=== PATIENT | male | born 1985 | race American Indian/Alaskan Native ===

== ENCOUNTER 2018-07-26 02:26 | Emergency (ER) | payer SELFPAY ==
[2018-07-26 02:31] VITALS: BP 135/85
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
[2018-07-26] MEDS ORDERED: IBUPROFEN PO ONE (04:24)
== END 2018-07-26 05:10 | disposition home or self-care (01) ==
LOC: MERGE 02:26 → ED 02:26
DX: S86.011A Strain of right Achilles tendon, initial encounter (principal); M25.512 Pain in left shoulder; W22.8XXA Striking against or struck by other objects, initial encounter; Y93.89 Activity, other specified; Y92.89 Other specified places as the place of occurrence of the external cause; Y99.8 Other external cause status
CPT/HCPCS: 99283

== ENCOUNTER 2018-08-23 06:53 | Emergency (ER) | payer SELFPAY ==
[2018-08-23 07:03] VITALS: BP 147/98
[2018-08-23] MEDS ORDERED: NACL 0.9% 1000 ML 1,000 ML IV ONE (07:03)
[2018-08-23 07:35] LABS: Basophils # (Auto) 0.1 K/mm3 (0.0-0.1); Basophils % (Auto) 0.5 % (0.0-1.8); Eosinophils # (Auto) 0.3 K/mm3 (0.0-0.4); Eosinophils % (Auto) 2.7 % (0.0-4.3); Hematocrit 46.9 % (35.5-45.6); Hemoglobin 15.5 gm/dl (11.8-15.2); Lymphocytes # (Auto) 2.1 K/mm3 (1.2-5.4); Lymphocytes % (Auto) 18.4 % (13.4-35.0); Mean Corpuscular HGB Conc 33 % (32-34); Mean Corpuscular Volume 85 fl (84-94); Monocytes # (Auto) 1.1 K/mm3 (0.0-0.8); Monocytes % (Auto) 9.5 % (0.0-7.3); Platelet Count 273 K/mm3 (140-440); Red Blood Count 5.51 M/mm3 (3.65-5.03); Red Cell Distribution Width 15.2 % (13.2-15.2)
--- NOTE | 2018-08-23 07:45 | Emergency Department Report ---
HPI - General Chief Complaint: Abdominal Pain Time Seen by Provider: 08/23/18 07:26 - HPI HPI: This is a 33-year-old male here report that he is having nausea and vomiting today with some red streaks disease coughing a lot. He is having abdominal pain and he thinks it is from coughing because he only has abdominal pain when he is coughing. He also says that because he is coughing so much she is having vomiting. Pain is located in the mid abdomen and feels throbbing and worse with cough. Pain is 7 out of 10. Worse with cough and vomiting and no alleviating factors. Denies any fever or chills. Denies any back pain or urinary burning frequency or urgency. Patient states that he thinks he had some French consistently started feeling sick. Denies any blood in his urine. He said he is feeling weak. He also said he had diarrhea twice this morning. No medication taken prior to coming to the emergency room. ED Past Medical Hx - Past Medical History Previous Medical History?: No - Surgical History Past Surgical History?: Yes Additional Surgical History: right arm. right leg - Family History Family history: hypertension - Social History Smoking Status: Current Every Day Smoker Substance Use Type: None - Medications Home Medications: Home Medications Medication Instructions Recorded Confirmed Last Taken Type Amoxicillin 500 mg PO TID #30 capsule 06/07/17 Unknown Rx Fluticasone [Flonase] 1 spray NS QDAY #1 bottle 06/07/17 Unknown Rx Ibuprofen 800 mg PO TID PRN #30 tablet 06/07/17 Unknown Rx Terbinafine HCl [Terbinafine] 30 gm TP BID #30 cream..g. 10/10/17 Unknown Rx Famotidine [Pepcid] 20 mg PO BID #60 tablet 07/11/18 Unknown Rx Naproxen 500 mg PO BID PRN #30 tablet 07/11/18 Unknown Rx Ibuprofen [Motrin 600 MG tab] 600 mg PO Q8H #15 tablet 07/26/18 Unknown Rx Cetirizine HCl [ZyrTEC] 10 mg PO QAM 14 Days #14 capsule 08/23/18 Unknown Rx Codeine Phosphate/Guaifenesin 10 ml PO Q12H PRN #100 liquid 08/23/18 Unknown Rx [Guaifen-Codeine 100-10 mg/5 ml] Dicyclomine [Bentyl] 40 mg PO QID 3 Days #12 tablet 08/23/18 Unknown Rx Fluticasone [Flonase] 1 spray NS QDAY 14 Days #1 bottle 08/23/18 Unknown Rx Promethazine [Phenergan TAB] 25 mg PO Q6HR PRN #12 tab 08/23/18 Unknown Rx Sulfamethoxazole/Trimethoprim 1 each PO BID 10 Days #20 tablet 08/23/18 Unknown Rx [Bactrim DS TAB] ED Review of Systems ROS: Stated complaint: VOMITTING BLOOD Other details as noted in HPI Constitutional: weakness. denies: chills, fever ENT: congestion. denies: ear pain, throat pain Respiratory: cough. denies: shortness of breath, SOB with exertion, SOB at rest, wheezing Cardiovascular: denies: chest pain, palpitations, edema, syncope Gastrointestinal: abdominal pain, nausea, vomiting, diarrhea, other (patient said when he coughs his throat irritates that he has some blood but no active bleeding.). denies: constipation, hematemesis, melena, hematochezia Genitourinary: denies: urgency, dysuria, frequency, hematuria, discharge, testicular pain, testicular mass Musculoskeletal: denies: back pain, joint swelling, arthralgia, myalgia Skin: denies: rash Neurological: denies: headache, numbness, paresthesias, confusion, abnormal gait, vertigo Physical Exam - Physical Exam Vital Signs: Vital Signs 08/23/18 06:57 Temperature 98.3 F Pulse Rate 112 H Respiratory 18 Rate Blood Pressure 147/98 O2 Sat by Pulse 100 Oximetry General: This is a 33-year-old male well-nourished well-developed in no acute distress. Physical Exam: Head: Normocephalic atraumatic. Scalp examination and normal. Nontender to palpate. No abrasion, contusion or hematoma noted. Ears: Bilateral TM congested without erythema. Bilateral EAC normal exam. No mastoid bone tenderness. Nose: Bilateral nasal mucosa congested with clear drainage and no erythema. Maxillary and frontal sinuses are nontender to palpate Mouth: Oral mucosa dry, tongue is normal, uvula is midline, no TUG CAPTAIN or drooling, oral airways patent and uvula is Lungs: Clear to auscultated bilaterally, no rhonchi wheezes or rales. Patient with dry cough. No use of accessory muscles. No chest wall tenderness CV: S1, S2. Tachycardic at 112, Regular rhythm negative murmur. Eyes: Bilateral pupils equal and reactive to light, conjunctival injection or icterus. Bilateral EOM intact and normal accommodation. No nystagmus. Lids a re normal. nontender to palpate. Skin: Clean dry and intact, no rash or lesions. Abdomen: Nontender to palpate in all quadrants. No guarding or rebound tenderness. No CVA tenderness. No hernia or mass felt. Extremity: No cce. + 2 pulses in all extremities, no neurovascular compromise. noted to extremities. Negative Homans Musculoskeletal: Range of motion in all extremities, no joint crepitus, erythema or effusion. Skin: Clean dry and intact, no rashes no lesions Mood: Normal mood and behavior ED Course Vital Signs 08/23/18 06:57 Temperature 98.3 F Pulse Rate 112 H Respiratory 18 Rate Blood Pressure 147/98 O2 Sat by Pulse 100 Oximetry - Reevaluation(s) Reevaluation #1: 08/23/18 09:54 Patient given Zofran 8 mg ODT sublingual which relieved his nausea. He was g iven apple juice and was able to tolerate. He is not having any abdominal pain at present. No shortness of breath. ED Medical Decision Making - Lab Data Result diagrams: 08/23/18 07:27 08/23/18 07:27 Lab Results 08/23/18 08/23/18 08/23/18 Range/Units 07:27 07:27 08:37 WBC 11.4 H (4.5-11.0) K/mm3 RBC 5.51 H (3.65-5.03) M/mm3 Hgb 15.5 H (11.8-15.2) gm/dl Hct 46.9 H (35.5-45.6) % MCV 85 (84-94) fl MCH 28 (28-32) pg MCHC 33 (32-34) % RDW 15.2 (13.2-15.2) % Plt Count 273 (140-440) K/mm3 Lymph % (Auto) 18.4 (13.4-35.0) % Gonzales % (Auto) 9.5 H (0.0-7.3) % Eos % (Auto) 2.7 (0.0-4.3) % Baso % (Auto) 0.5 (0.0-1.8) % Lymph # 2.1 (1.2-5.4) K/mm3 Gonzales # 1.1 H (0.0-0.8) K/mm3 Eos # 0.3 (0.0-0.4) K/mm3 Baso # 0.1 (0.0-0.1) K/mm3 Seg Neutrophils % 68.9 (40.0-70.0) % Seg Neutrophils # 7.8 H (1.8-7.7) K/mm3 Sodium 139 (137-145) mmol/L Potassium 3.7 (3.6-5.0) mmol/L Chloride 99.5 (98-107) mmol/L Carbon Dioxide 25 (22-30) mmol/L Anion Gap 18 mmol/L BUN 7 L (9-20) mg/dL Creatinine 0.7 L (0.8-1.5) mg/dL Estimated GFR > 60 ml/min BUN/Creatinine Ratio 10 % Glucose 102 H (75-100) mg/dL Calcium 9.5 (8.4-10.2) mg/dL Total Bilirubin 0.60 (0.1-1.2) mg/dL AST 21 (5-40) units/L ALT 29 (7-56) units/L Alkaline Phosphatase 81 (35-129) units/L Total Protein 7.4 (6.3-8.2) g/dL Albumin 4.3 (3.9-5) g/dL Albumin/Globulin Ratio 1.4 % Lipase 21 (13-60) units/L Urine Color Yellow (Yellow) Urine Turbidity Clear (Clear) Urine pH 6.0 (5.0-7.0) Ur Specific Pillager 1.009 (1.003-1.030) Urine Protein <15 mg/dl (Negative) mg/dL Urine Glucose (UA) Neg (Negative) mg/dL Urine Ketones 20 (Negative) mg/dL Urine Blood Neg (Negative) Urine Nitrite Neg (Negative) Urine Bilirubin Neg (Negative) Urine Urobilinogen 2.0 (<2.0) mg/dL Ur Leukocyte Esterase Mod (Negative) Urine WBC (Auto) 21.0 H (0.0-6.0) /HPF Urine RBC (Auto) 1.0 (0.0-6.0) /HPF Urine Mucus Few /HPF Urine culture sent - Radiology Data Radiology results: report reviewed Patient a 2 view x-ray of the dictated radiologist report reviewed. Please see details. Findings [facility] [address] [place] [address] XRay Report Signed Patient: CHOLO SHARP MR#: [id number] : 1985 Acct:[id number] Age/Sex: 33 / M ADM Date: 08/23/18 Loc: ED Attending Dr: Ordering Physician: VENESSA TAVARES Date of Service: 08/23/18 Procedure(s): XR chest routine 2V Accession Number(s): [id number] cc: VENESSA TAVARES Fluoro Time In Minutes: ROUTINE CHEST, TWO VIEWS: HISTORY: Cough and fever for one month. The trachea, heart, mediastinal contour, lung johnson and bony thorax are unremarkable. IMPRESSION: Unremarkable chest x-ray. Transcribed By: TTR Dictated By: MANN HARVEY JR, MD Electronically Authenticated By: MANN HARVEY JR, MD Signed Date/Time: 08/23/18806 DD/ 6 TD/TT: 08/23/18806 - Medical Decision Making This is a 33-year-old male here reports that he is having nausea vomiting and diarrhea after eating French's is also complaining of respiratory cough and cold symptoms. Please see examination notes for detail. X-ray: Patient had 2 view chest x-ray shows no acute abnormalities. Labs: CBC with mild elevation in white count, hemoconcentration suggesting some dehydration, CMP is stable, lipase stable urinalysis with positive white counts and moderate leukocyte Estrace. 20 ketones. Urine culture sent Assessment/plan Nausea vomiting and diarrhea-resolving. Patient was able to tolerate oral liquids in the emergency room and receive Zofran 8 mg ODT which helped his nausea. Suggested bland diet to include bananas, rice, applesauce and toast and to follow-up at his primary care in 2 days. Acute cystitis without hematuria-patient will be sent home on Bactrim DS Upper respiratory cough and congestion-patient will be sent home on, Zyrtec, Flonase and will fundus in with codeine to help with cough. Mild dehydration-orally hydrated without any problems I discussed the patient is diagnosis and treatment plan and told him that he will need to follow up with primary care physician in 2 days and if he does not have one to follow up at [facility]. I also instructed him on his x-ray and lab results. Patient voiced understanding and discharged home and told to keep hydrated with Gatorade and water. - Differential Diagnosis PNA, bronchitis, URI or cough congestion, viral syndrome Critical care attestation.: If time is entered above; I have spent that time in minutes in the direct care of this critically ill patient, excluding procedure time. ED Disposition Clinical Impression: Acute cystitis without hematuria, Nausea vomiting and diarrhea, Dehydration, mild, URI with cough and congestion Abdominal pain Qualifiers: Abdominal location: generalized Qualified Code(s): R10.84 - Generalized abdominal pain Disposition: - TO HOME OR SELFCARE Is pt being admited?: No Does the pt Need Aspirin: No Condition: Stable Instructions: Acute Nausea and Vomiting (ED), Abdominal Pain (ED), Nutrition Tips for Relief of Diarrhea (ED), Acute Diarrhea (ED), Gastroenteritis (ED), Urinary Tract Infection in Men (ED) Additional Instructions: Please follow up with the primary care in 2 days and if he do not have a primary care doctor follow-up at [facility] Please rest for the next 3 days and make sure he drank plenty of water to include Gatorade at least 2-3 L daily. 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
[2018-08-23] MEDS ORDERED: ZOFRAN ODT PO ONE (07:46)
[2018-08-23 07:59] LABS: Alanine Aminotransferase 29 units/L (7-56); Albumin 4.3 g/dL (3.9-5); BUN/Creatinine Ratio 10; Blood Urea Nitrogen 7 mg/dL (9-20); Calcium 9.5 mg/dL (8.4-10.2); Hemolysis Index 10
--- NOTE | 2018-08-23 08:10 | XRay Report ---
ROUTINE CHEST, TWO VIEWS: HISTORY: Cough and fever for one month. The trachea, heart, mediastinal contour, lung johnson and bony thorax are unremarkable. IMPRESSION: Unremarkable chest x-ray.
[2018-08-23 09:06] LABS: Bilirubin,Urine NEG (Negative); Blood,Urine NEG (Negative); Color,Urine Yellow (Yellow); Mucus,Urine FEW /HPF; Protein,Urine <15 mg/dL mg/dL (Negative)
== END 2018-08-23 10:14 | disposition home or self-care (01) ==
LOC: ED 06:53 → MERGE 06:53 → ED 10:14
DX: N30.00 Acute cystitis without hematuria (principal); E86.0 Dehydration; J06.9 Acute upper respiratory infection, unspecified; F17.200 Nicotine dependence, unspecified, uncomplicated; Z79.899 Other long term (current) drug therapy
CPT/HCPCS: 36415; 71046; 80053; 81001; 83690; 85025; 87086; Q0162

== ENCOUNTER 2018-08-30 02:31 | Emergency (ER) | payer SELFPAY ==
[2018-08-30 04:15] LABS: Hematocrit 44.9 % (35.5-45.6); Hemoglobin 15.1 gm/dl (11.8-15.2); Mean Corpuscular HGB Conc 34 % (32-34); Mean Corpuscular Volume 85 fl (84-94); Platelet Count 299 K/mm3 (140-440); Red Blood Count 5.31 M/mm3 (3.65-5.03); Red Cell Distribution Width 14.6 % (13.2-15.2)
[2018-08-30 04:19] LABS: Alanine Aminotransferase 32 units/L (7-56); Albumin 4.3 g/dL (3.9-5); BUN/Creatinine Ratio 9; Blood Urea Nitrogen 7 mg/dL (9-20); Calcium 9.3 mg/dL (8.4-10.2); Hemolysis Index 3
[2018-08-30 05:05] LABS: Bilirubin,Urine NEG (Negative); Blood,Urine NEG (Negative); Color,Urine Yellow (Yellow); Mucus,Urine FEW /HPF; Protein,Urine <15 mg/dL mg/dL (Negative)
[2018-08-30 05:59] VITALS: BP 118/74
[2018-08-30] MEDS ORDERED: IBUPROFEN PO ONE (08:13)
[2018-08-30] MEDS ORDERED: ZOFRAN ODT PO ONE (08:13)
[2018-08-30] MEDS ORDERED: ZOFRAN ONE (08:43)
[2018-08-30] MEDS ORDERED: NACL 0.9% 1000 ML 1,000 ML ONE (08:44)
[2018-08-30] MEDS ORDERED: NACL 0.9% 1000 ML IV ONE (08:47)
[2018-08-30] MEDS ORDERED: ZOFRAN IV ONE (08:49)
[2018-08-30] MEDS ORDERED: TORADOL IV ONE (08:53)
[2018-08-30] MEDS ORDERED: TORADOL ONE (08:56)
--- NOTE | 2018-08-30 09:03 | Emergency Department Report ---
ED Abdominal Pain HPI - General Chief Complaint: Abdominal Pain Stated Complaint: ABD PAIN/DIARREAH Time Seen by Provider: 08/30/18 07:12 Source: patient Mode of arrival: Ambulatory Limitations: No Limitations - History of Present Illness MD Complaint: abdominal pain -: Gradual Location: LUQ, epigastric Radiation: none Migration to: no migration Severity: moderate Severity scale (0 -10): 7 Quality: cramping, aching Consistency: intermittent Improves With: nothing Worsens With: eating, vomiting Context: foreign travel, possible food poisoning - Related Data Previous Rx's Medication Instructions Recorded Last Taken Type Dicyclomine [Bentyl] 20 mg PO QID #20 tablet 08/31/18 Unknown Rx Esomeprazole Magnesium [Nexium] 40 mg PO QDAY #30 capsule. 08/31/18 Unknown Rx Sucralfate [Carafate] 1 gm PO Q6HR #360 udc 08/31/18 Unknown Rx Allergies Allergy/AdvReac Type Severity Reaction Status Date / Time No Known Allergies Allergy Verified 09/13/18 08:59 ED Review of Systems ROS: Stated complaint: ABD PAIN/DIARREAH Other details as noted in HPI Comment: All other systems reviewed and negative ED Past Medical Hx - Past Medical History Previous Medical History?: No - Surgical History Past Surgical History?: Yes Additional Surgical History: right arm. right leg - Social History Smoking Status: Current Every Day Smoker Substance Use Type: None - Medications Home Medications: Home Medications Medication Instructions Recorded Confirmed Last Taken Type Dicyclomine [Bentyl] 20 mg PO QID #20 tablet 08/31/18 Unknown Rx Esomeprazole Magnesium [Nexium] 40 mg PO QDAY #30 capsule. 08/31/18 Unknown Rx Sucralfate [Carafate] 1 gm PO Q6HR #360 udc 08/31/18 Unknown Rx ED Physical Exam - General Limitations: No Limitations General appearance: alert, in no apparent distress - Head Head exam: Present: atraumatic, normocephalic - Eye Eye exam: Present: normal appearance - ENT ENT exam: Present: mucous membranes moist - Neck Neck exam: Present: normal inspection - Respiratory Respiratory exam: Present: normal lung sounds bilaterally. Absent: respiratory distress - Cardiovascular Cardiovascular Exam: Present: regular rate, normal rhythm. Absent: systolic murmur, diastolic murmur, rubs, gallop - GI/Abdominal GI/Abdominal exam: Present: soft, normal bowel sounds. Absent: distended, tenderness, guarding - Rectal Rectal exam: Present: deferred - Extremities Exam Extremities exam: Present: normal inspection - Back Exam Back exam: Present: normal inspection - Neurological Exam Neurological exam: Present: alert, oriented X3 - Psychiatric Psychiatric exam: Present: normal affect, normal mood - Skin Skin exam: Present: warm, dry, intact, normal color. Absent: rash ED Course Vital Signs 08/30/18 08/30/18 02:54 05:55 Temperature 99.4 F 98.8 F Pulse Rate 108 H 98 H Respiratory 18 16 Rate Blood Pressure 146/83 118/74 Blood Pressure 118/74 [Left] O2 Sat by Pulse 96 97 Oximetry ED Medical Decision Making - Lab Data Result diagrams: 08/30/18 03:38 08/30/18 03:38 - Medical Decision Making 33-year-old seen male presents with gastroenteritis. Discussed the patient to follow up with [facility] Vital signs are normal. All labs are within normal limits, CT scan is negative Discussed follow-up. Critical care attestation.: If time is entered above; I have spent that time in minutes in the direct care of this critically ill patient, excluding procedure time. ED Disposition Clinical Impression: Abdominal pain, Gastroenteritis Disposition: DC-01 TO HOME OR SELFCARE Is pt being admited?: No Does the pt Need Aspirin: No Condition: Stable Instructions: Chronic Pelvic Pain in Men (ED), Abdominal Pain (ED) Additional Instructions: Make sure to follow up with the primary care physician as discussed. Take all your medications as you've been prescribed. If you have any worsening symptoms or develop new symptoms please return to ED immediately. Referrals: RUDDY CASON MD [Primary Care Provider] - 3-5 Days [facility] [Provider Group] - 3-5 Days [facility] [Provider Group] - 3-5 Days Forms: Accompanied Note, Work/School Release Form(ED) Time of Disposition: 10:12
--- NOTE | 2018-08-30 09:09 | Cat Scan Report ---
CT ABDOMEN PELVIS WITHOUT CONTRAST: HISTORY: abdominal pain. COMPARISON: none. TECHNIQUE: Helical CT in 1.25mm intervals without IV contrast. Sagittal and coronal reconstructions. FINDINGS: Lung bases: Normal. Liver: Normal. Biliary system: Normal. Pancreas: Normal. Spleen: Normal. Kidneys/ureters/bladder: Normal. Adrenal glands: Normal. Aorta: Normal. Intestines: Normal. Appendix: Normal. Pelvic viscera: Normal. Ascites: None. Adenopathy: None. Musculoskeletal: Normal. IMPRESSION: Unremarkable CT scan of the abdomen and pelvis without contrast.
[2018-08-30] MEDS ORDERED: BENTYL IM ONE (09:54)
== END 2018-08-30 10:35 | disposition home or self-care (01) ==
LOC: MERGE 02:31 → ED 02:31
DX: K52.9 Noninfective gastroenteritis and colitis, unspecified (principal); F17.200 Nicotine dependence, unspecified, uncomplicated
CPT/HCPCS: 36415; 74176; 80053; 81001; 83690; 85027; 96361; 96372; 96374; 96375; 99284; J0500; J1885; J2405; J7030; Q0162

== ENCOUNTER 2018-08-31 04:51 | Emergency (ER) | payer SELFPAY ==
[2018-08-31] MEDS ORDERED: NACL 0.9% 1000 ML 1,000 ML IV ONE (05:41)
[2018-08-31] MEDS ORDERED: MORPHINE IV ONE ×2 (06:19→08:14)
[2018-08-31] MEDS ORDERED: ZOFRAN IV ONE ×2 (06:19→08:14)
[2018-08-31 06:20] LABS: Basophils % (Auto) 0.5 % (0.0-1.8); Eosinophils % (Auto) 0.8 % (0.0-4.3); Hemoglobin 14.3 gm/dl (11.8-15.2); Lymphocytes # (Auto) 1.6 K/mm3 (1.2-5.4); Lymphocytes % (Auto) 27.2 % (13.4-35.0); Mean Corpuscular HGB Conc 33 % (32-34); Mean Corpuscular Volume 85 fl (84-94); Monocytes # (Auto) 0.5 K/mm3 (0.0-0.8); Monocytes % (Auto) 7.5 % (0.0-7.3); Platelet Count 278 K/mm3 (140-440); Red Blood Count 5.08 M/mm3 (3.65-5.03); Red Cell Distribution Width 14.7 % (13.2-15.2)
--- NOTE | 2018-08-31 06:21 | Emergency Department Report ---
ED General Adult HPI - General Chief complaint: Abdominal Pain Stated complaint: ABD PAIN Time Seen by Provider: 08/31/18 06:06 Source: patient Mode of arrival: Ambulatory Limitations: No Limitations - History of Present Illness Initial comments: Patient presents to respond chief complaint of abdominal pain 2 weeks. Patient states the pain has become increasingly worse over that time and also complains of some nausea. Patient denies anything making it better or worse. Patient denies chest pain, shortness breath, or headache. -: Gradual Location: abdomen Severity scale (0 -10): 6 Quality: stabbing, aching Consistency: constant Improves with: none Worsens with: none Associated Symptoms: denies other symptoms Treatments Prior to Arrival: none - Related Data Previous Rx's Medication Instructions Recorded Last Taken Type Dicyclomine [Bentyl] 20 mg PO QID #20 tablet 08/31/18 Unknown Rx Esomeprazole Magnesium [Nexium] 40 mg PO QDAY #30 capsule. 08/31/18 Unknown Rx Sucralfate [Carafate] 1 gm PO Q6HR #360 udc 08/31/18 Unknown Rx Allergies Allergy/AdvReac Type Severity Reaction Status Date / Time No Known Allergies Allergy Verified 06/07/17 09:53 ED Review of Systems ROS: Stated complaint: ABD PAIN Other details as noted in HPI Comment: All other systems reviewed and negative Constitutional: denies: chills, fever Eyes: denies: eye pain, eye discharge, vision change ENT: denies: ear pain, throat pain Respiratory: denies: cough, shortness of breath, wheezing Cardiovascular: denies: chest pain, palpitations Endocrine: no symptoms reported Gastrointestinal: abdominal pain. denies: nausea, diarrhea Genitourinary: denies: urgency, dysuria Musculoskeletal: denies: back pain, joint swelling, arthralgia Skin: denies: rash, lesions Neurological: denies: headache, weakness, paresthesias Psychiatric: denies: anxiety, depression Hematological/Lymphatic: denies: easy bleeding, easy bruising ED Past Medical Hx - Past Medical History Previous Medical History?: No - Surgical History Past Surgical History?: Yes Additional Surgical History: right arm. right leg - Social History Smoking Status: Current Every Day Smoker Substance Use Type: None - Medications Home Medications: Home Medications Medication Instructions Recorded Confirmed Last Taken Type Dicyclomine [Bentyl] 20 mg PO QID #20 tablet 08/31/18 Unknown Rx Esomeprazole Magnesium [Nexium] 40 mg PO QDAY #30 capsule. 08/31/18 Unknown Rx Sucralfate [Carafate] 1 gm PO Q6HR #360 udc 08/31/18 Unknown Rx ED Physical Exam - General Limitations: No Limitations General appearance: alert, in no apparent distress - Head Head exam: Present: atraumatic, normocephalic - Eye Eye exam: Present: normal appearance, PERRL, EOMI - ENT ENT exam: Present: mucous membranes moist - Neck Neck exam: Present: normal inspection - Respiratory Respiratory exam: Present: normal lung sounds bilaterally. Absent: respiratory distress, wheezes, rales - Cardiovascular Cardiovascular Exam: Present: regular rate, normal rhythm. Absent: systolic murmur, diastolic murmur, rubs, gallop - GI/Abdominal GI/Abdominal exam: Present: soft, tenderness (diffusely tender to palpation), normal bowel sounds. Absent: distended - Rectal Rectal exam: Present: deferred - Extremities Exam Extremities exam: Present: normal inspection - Back Exam Back exam: Present: normal inspection - Neurological Exam Neurological exam: Present: alert, oriented X3, CN II-XII intact. Absent: motor sensory deficit - Psychiatric Psychiatric exam: Present: normal affect, normal mood - Skin Skin exam: Present: warm, dry, intact, normal color. Absent: rash ED Course Vital Signs 08/31/18 08/31/18 08/31/18 05:52 05:54 05:58 Pulse Rate 85 Respiratory 20 18 Rate Blood Pressure Blood Pressure 115/65 [Left] O2 Sat by Pulse 99 98 98 Oximetry 08/31/18 08/31/18 08/31/18 06:00 06:15 06:30 Pulse Rate Respiratory Rate Blood Pressure 115/69 119/76 119/76 Blood Pressure [Left] O2 Sat by Pulse 99 99 82 L Oximetry 08/31/18 07:37 Pulse Rate 86 Respiratory 16 Rate Blood Pressure 117/75 Blood Pressure [Left] O2 Sat by Pulse 99 Oximetry ED Medical Decision Making - Lab Data Result diagrams: 08/31/18 05:56 08/31/18 05:56 - Radiology Data Radiology results: report reviewed - Medical Decision Making Discussed CT findings with patient and the need to follow up with a strap machine operator automatic for further testing Critical care attestation.: If time is entered above; I have spent that time in minutes in the direct care of this critically ill patient, excluding procedure time. ED Disposition Clinical Impression: Abdominal pain, Gastritis Disposition: - TO HOME OR SELFCARE Is pt being admited?: No Does the pt Need Aspirin: No Condition: Stable Instructions: Acute Abdominal Pain (ED), Gastritis (ED) Additional Instructions: return if worse Prescriptions: Dicyclomine [Bentyl] 20 mg PO QID #20 tablet Esomeprazole Magnesium [Nexium] 40 mg PO QDAY #30 capsule. Sucralfate [Carafate] 1 gm PO Q6HR #360 [facility] [place] Referrals: RUDDY CASON MD [Primary Care Provider] - 3-5 Days [facility] [Provider Group] - 3-5 Days Time of Disposition: 08:23
[2018-08-31 06:40] LABS: Alanine Aminotransferase 30 units/L (7-56); Albumin 4.1 g/dL (3.9-5); BUN/Creatinine Ratio 15; Blood Urea Nitrogen 12 mg/dL (9-20); Calcium 8.9 mg/dL (8.4-10.2); Hemolysis Index 10
--- NOTE | 2018-08-31 08:05 | Cat Scan Report ---
CT ABDOMEN AND PELVIS WITH CONTRAST INDICATION: Abdominal pain. COMPARISON: Yesterday. FINDINGS: Abdomen and pelvis CT performed following intravenous administration of 100 cc of Omnipaque 300. LUNG BASES: Nonspecific distal esophageal wall prominence/thickening, not excluded for gastroesophageal reflux and/or hiatal hernia, amongst others. ABDOMEN: Left hepatic lobe tip again wraps around the spleen in the left upper quadrant. Otherwise unremarkable liver, gallbladder, pancreas, adrenals, aorta, IVC, and kidneys. Homogenous, though somewhat lobulated spleen anteriorly as on axial image 36, series 2, amongst others. No ascites or size significant adenopathy. Nonopacified GI tract evaluation limited, though grossly nonobstructive. Mid to distal gastric exaggerated wall thickness as on axial series 2, images 48-58 nonspecific for suboptimal distention versus pathologic. Normal appendix. Mild stool throughout colon. PELVIS: Urinary bladder, seminal vesicles, prostate and rectosigmoid appear within normal limits. No free fluid or significant adenopathy. Intact bones. CONCLUSION: Distal esophageal and mid to distal gastric exaggerated wall thickness may be correlated for clinically in light of provided history. No other acute significant CT abnormality with few incidental findings, as above. Thank you for the opportunity to participate in this patient's care.
[2018-08-31] MEDS ORDERED: NACL 0.9% 500 ML 500 ML IV ONE (08:14)
[2018-08-31] MEDS ORDERED: PROTONIX IV ONE (08:14)
[2018-08-31 09:57] VITALS: BP 106/63
== END 2018-08-31 10:45 | disposition home or self-care (01) ==
LOC: MERGE 04:51 → ED 04:51
DX: K29.70 Gastritis, unspecified, without bleeding (principal); F17.200 Nicotine dependence, unspecified, uncomplicated
CPT/HCPCS: 36415; 74177; 80053; 83690; 85025; 96361; 96374; 96375; 96376; 99284; C9113; J2270; J2405; J7030; J7040; Q9967

== ENCOUNTER 2018-09-10 06:38 | Emergency (ER) | payer OTHER ==
[2018-09-10] MEDS ORDERED: PERCOCET 5/325 PO ONE ×2 (09:26→13:43)
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
[2018-09-10 09:36] LABS: Hematocrit 44.3 % (35.5-45.6); Hemoglobin 15.3 gm/dl (11.8-15.2); Mean Corpuscular HGB Conc 35 % (32-34); Mean Corpuscular Volume 83 fl (84-94); Platelet Count 272 K/mm3 (140-440); Red Blood Count 5.35 M/mm3 (3.65-5.03); Red Cell Distribution Width 14.5 % (13.2-15.2)
[2018-09-10 10:22] LABS: Alanine Aminotransferase 36 units/L (7-56); Albumin 4.6 g/dL (3.9-5); BUN/Creatinine Ratio 14; Blood Urea Nitrogen 11 mg/dL (9-20); Calcium 9.4 mg/dL (8.4-10.2); Hemolysis Index 6
[2018-09-10] MEDS ORDERED: K-DUR PO ONE (10:25)
[2018-09-10 10:26] LABS: Bilirubin,Direct < 0.2 mg/dL (0-0.2)
[2018-09-10] MEDS ORDERED: NACL 0.9% 1000 ML 1,000 ML IV ONE (10:35)
[2018-09-10 11:04] LABS: Band Neutrophils # (Manual) 0.2 K/mm3; Basophils % (Manual) 0 % (0.0-1.8); Eosinophils % (Manual) 0 % (0.0-4.3); Total Cells Counted 100
[2018-09-10 11:05] LABS: RBC Morphology Normal
--- NOTE | 2018-09-10 14:30 | XRay Report ---
PROCEDURE: XR ABDOMEN 2V TECHNIQUE: Abdominal series, including supine and upright AP views. HISTORY: Abdominal Pain COMPARISONS: None . FINDINGS: Bowel gas pattern: Nonobstructive . Masses or calcifications: None . Bony structures: No significant abnormality . Pneumoperitoneum: None . Other: No significant findings . IMPRESSION: Nonobstructive bowel gas pattern. This document is electronically signed by Bhavna Luna MD., September 10 2018 11:41:46 AM ET
--- NOTE | 2018-09-10 14:31 | XRay Report ---
PROCEDURE: XR KNEE 3V RT TECHNIQUE: Right knee radiograph, 3 views HISTORY: right knee pain COMPARISONS: None . FINDINGS: There is an intramedullary paul with screws in the tibia. There is no acute hilar comp location. There is no acute bony fracture or dislocation. There is no joint effusion. Overlying soft tissues are int act. IMPRESSION: No acute bony abnormality of the right knee . This document is electronically signed by Bhavna Luna MD., September 10 2018 11:42:49 AM ET
[2018-09-10 14:48] VITALS: BP 118/73
--- NOTE | 2018-09-10 16:52 | Cat Scan Report ---
PROCEDURE: CT HEAD/BRAIN WO CON TECHNIQUE: Computerized tomography of the head was performed without contrast material. HISTORY: headache, trauma COMPARISONS: None . FINDINGS: No CT evidence of intracranial mass, hemorrhage, acute territorial infarction, or hydrocephalus. Intr acranial arteries are symmetric in density. Calvarium is intact. Visualized paranasal sinuses and mas toids are aerated. IMPRESSION: No CT evidence of acute abnormality This document is electronically signed by Luma Perry MD., September 10 2018 01:21:34 PM ET
--- NOTE | 2018-09-10 16:58 | Cat Scan Report ---
PROCEDURE: CT ABDOMEN PELVIS W CON TECHNIQUE: Computerized axial tomography of the abdomen and pelvis was performed after the IV inject ion of iodinated nonionic contrast. HISTORY: abd pain COMPARISONS: None . FINDINGS: Visualized lower thorax: No significant abnormality. Liver: Normal size and attenuation. Spleen: Normal size and attenuation. Gallbladder and biliary system: Normal. Pancreas: Normal. Adrenals: Normal. Kidneys: Normal. GI tract: The appendix is visualized and does not appear inflamed. No bowel obstruction or inflammat ion is seen . Lymph nodes and mesentery: Normal. Vasculature: Normal.. Bladder: Normal. Reproductive organs: Normal. Peritoneum: No free fluid. Musculoskeletal structures: No significant abnormality. Other: None . IMPRESSION: No acute abnormality is identified . This document is electronically signed by Luma Perry MD., September 10 2018 01:25:04 PM ET
== END 2018-09-10 14:47 | disposition home or self-care (01) ==
LOC: ED 06:38 → MERGE 06:38 → ED 14:47
DX: S09.90XA Unspecified injury of head, initial encounter (principal); M25.561 Pain in right knee; R10.30 Lower abdominal pain, unspecified; E87.6 Hypokalemia; F17.200 Nicotine dependence, unspecified, uncomplicated; Y08.89XA Assault by other specified means, initial encounter; Y93.89 Activity, other specified; Y92.89 Other specified places as the place of occurrence of the external cause; Y99.8 Other external cause status
CPT/HCPCS: 29505; 36415; 70450; 73562; 74019; 74177; 80048; 80076; 85007; 85025; 96360; 99284; J7030; Q9967

== ENCOUNTER 2018-09-11 04:30 | Emergency (ER) | payer OTHER ==
[2018-09-11 04:47] VITALS: BP 141/78
[2018-09-11 05:23] LABS: Basophils % (Auto) 0.7 % (0.0-1.8); Eosinophils % (Auto) 0.3 % (0.0-4.3); Hematocrit 42.6 % (35.5-45.6); Hemoglobin 14.6 gm/dl (11.8-15.2); Lymphocytes # (Auto) 1.3 K/mm3 (1.2-5.4); Lymphocytes % (Auto) 25.2 % (13.4-35.0); Mean Corpuscular HGB Conc 34 % (32-34); Mean Corpuscular Volume 84 fl (84-94); Monocytes # (Auto) 0.5 K/mm3 (0.0-0.8); Monocytes % (Auto) 8.9 % (0.0-7.3); Platelet Count 242 K/mm3 (140-440); Red Blood Count 5.05 M/mm3 (3.65-5.03); Red Cell Distribution Width 14.4 % (13.2-15.2)
[2018-09-11 05:43] LABS: Alanine Aminotransferase 31 units/L (7-56); Albumin 4.4 g/dL (3.9-5); BUN/Creatinine Ratio 16; Blood Urea Nitrogen 11 mg/dL (9-20); Calcium 9.2 mg/dL (8.4-10.2); Hemolysis Index 12
[2018-09-11 06:03] LABS: Bacteria,Urine 1+ /HPF (Negative); Bilirubin,Urine NEG (Negative); Blood,Urine NEG (Negative); Color,Urine Straw (Yellow); Protein,Urine <15 mg/dL mg/dL (Negative)
[2018-09-11 06:05] LABS: RBC,Urine < 1.0 /HPF (0.0-6.0)
[2018-09-11] MEDS ORDERED: BOOSTRIX IM ONE (08:18)
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
--- NOTE | 2018-09-11 09:10 | XRay Report ---
PROCEDURE: XR KNEE 3V RT TECHNIQUE: 3 views of the right knee. HISTORY: pain after falling COMPARISON: None FINDINGS: There is no acute fracture seen. There is no dislocation seen. There is no evidence for joint effusion. There is a tibial intramedullary paul present. IMPRESSION: There is no acute abnormality identified. This document is electronically signed by Sheridan Perry MD., September 11 2018 09:07:37 AM ET
== END 2018-09-11 09:46 | disposition home or self-care (01) ==
LOC: ED 04:30 → MERGE 04:30 → ED 09:46
DX: S80.211A Abrasion, right knee, initial encounter (principal); R10.9 Unspecified abdominal pain; F17.200 Nicotine dependence, unspecified, uncomplicated; X58.XXXA Exposure to other specified factors, initial encounter; Y93.89 Activity, other specified; Y92.89 Other specified places as the place of occurrence of the external cause; Y99.8 Other external cause status
CPT/HCPCS: 36415; 80053; 81001; 83690; 85025; 90471; 90715

== ENCOUNTER 2018-09-15 06:55 | Emergency (ER) | payer OTHER ==
[2018-09-15 07:22] VITALS: BP 135/73
[2018-09-15] MEDS ORDERED: IBUPROFEN PO ONE (08:25)
--- NOTE | 2018-09-15 08:30 | Emergency Department Report ---
ED Lower Extremity HPI - General Chief Complaint: Extremity Injury, Lower Stated Complaint: ABD PAIN KNEE INJURY Time Seen by Provider: 09/15/18 08:14 Source: patient Mode of arrival: Ambulatory Limitations: No Limitations - History of Present Illness Initial Comments: This is a 34-year-old -[place] male who presents with right knee pain for a injury 2 days ago. Patient states he was wrestling at home when he twisted his right knee. Patient states worse swelling but with the use of ice swelling improved. He also reports an abrasion to the lateral lower patella which has improved. Patient reports pain is worse with walking. He reports the pain is 10 on pain scale and achy sensation. He denies numbness or tingling, paresthesia, weakness, warmth, or erythema. MD Complaint: knee injury (right) Onset/Timin -: days(s) Injury: Knee: Right Type of Injury: unknown Place: home Severity: moderate Severity scale (0 -10): 8 Improves With: cold therapy Worsens With: weight bearing, movement Context: fall Associated Symptoms: swelling, able to partially bear weight. denies: snap/pop sensation, numbness, tingling, unable to bear weight, ambulatory Treatments Prior to Arrival: cold therapy - Related Data Previous Rx's Medication Instructions Recorded Last Taken Type Ibuprofen [Motrin 600 MG tab] 600 mg PO Q8H PRN #15 tablet 09/15/18 Unknown Rx Allergies Allergy/AdvReac Type Severity Reaction Status Date / Time No Known Allergies Allergy Unverified 09/15/18 07:13 ED Review of Systems ROS: Stated complaint: ABD PAIN KNEE INJURY Other details as noted in HPI Constitutional: denies: chills, fever Respiratory: denies: cough, shortness of breath, wheezing Cardiovascular: denies: chest pain, palpitations Gastrointestinal: denies: abdominal pain, nausea, diarrhea Musculoskeletal: joint swelling (right knee), arthralgia (right knee). denies: back pain Skin: other (operation to right knee). denies: rash, lesions Neurological: denies: headache, weakness, paresthesias Psychiatric: denies: anxiety, depression ED Past Medical Hx - Past Medical History Previous Medical History?: No - Surgical History Past Surgical History?: Yes Additional Surgical History: knee surg - Social History Smoking Status: Current Every Day Smoker Substance Use Type: None - Medications Home Medications: Home Medications Medication Instructions Recorded Confirmed Last Taken Type Ibuprofen [Motrin 600 MG tab] 600 mg PO Q8H PRN #15 tablet 09/15/18 Unknown Rx ED Physical Exam - General Limitations: No Limitations General appearance: alert, in no apparent distress - Respiratory Respiratory exam: Present: normal lung sounds bilaterally. Absent: respiratory distress - Cardiovascular Cardiovascular Exam: Present: regular rate, normal rhythm. Absent: systolic murmur, diastolic murmur, rubs, gallop - GI/Abdominal GI/Abdominal exam: Present: soft, normal bowel sounds - Expanded Lower Extremity Exam Right Hip exam: Present: normal inspection, full ROM Upper Leg exam: Present: normal inspection, full ROM Knee exam: Present: full ROM (painful range of motion), abrasion (healing 1 cm abrasion to lower lateral side, well approximated edges), full knee extension. Absent: laceration, ecchymosis, deformity, crepidus, dislocation, erythema, effusion, pain w/ pronation/supination, posterior draw sign, pain/laxity with valgus, pain/laxity with varus Lower Leg exam: Present: normal inspection, full ROM Ankle exam: Present: normal inspection, full ROM Foot/Toe exam: Present: normal inspection, full ROM Neuro vascular tendon exam: Present: no vascular compromise Gait: Positive: observed and normal - Neurological Exam Neurological exam: Present: alert, oriented X3, normal gait - Psychiatric Psychiatric exam: Present: normal affect, normal mood - Skin Skin exam: Present: warm, dry, intact, normal color. Absent: rash ED Course Vital Signs 09/15/18 07:20 Temperature 99.2 F Pulse Rate 92 H Respiratory 16 Rate Blood Pressure 135/73 Blood Pressure 135/73 [Left] O2 Sat by Pulse 98 Oximetry ED Lower Extremity MDM - Radiology Data Radiology results: report reviewed RIGHT KNEE, 3 views: History: Lateral knee pain. There is been previous placement of an intramedullary paul in the tibia which is partially imaged. Please correlate with history. The bony architecture is intact without evidence of fracture or dislocation. No significant soft tissue abnormality is seen. IMPRESSION: Surgical changes as described. Otherwise, unremarkable right knee films. - Medical Decision Making Patient was examined by me. Vitals are normal and patient is in no acute distress. Given Motrin 800 mg by mouth once many arm. Obtained a x-ray of right knee. X-rays dictated by radiologist for review by myself. Surgical changes as described. Otherwise, unremarkable right knee films. Patient informed of results. Start ibuprofen for pain. Increase activity as tolerated. Plan discussed with patient to discharge home and treat outpatient. He agrees with ER plan. Patient discharged home in stable condition. Follow up with PCP in 2-3 days. Critical care attestation.: If time is entered above; I have spent that time in minutes in the direct care of this critically ill patient, excluding procedure time. ED Disposition Clinical Impression: Pain in lateral portion of right knee Muscle strain of right knee Qualifiers: Encounter type: initial encounter Qualified Code(s): S86.911A - Strain of unspecified muscle(s) and tendon(s) at lower leg level, right leg, initial encounter Disposition: TO HOME OR SELFCARE Is pt being admited?: No Does the pt Need Aspirin: No Condition: Stable Instructions: Muscle Strain (ED), Arthralgia (ED), RICE Therapy (ED) Additional Instructions: Rest Use ice or heat on affected area for 20 minutes and off for 2 hours. Take pain medication as needed for pain. Follow up with Primary Care Provider in 2-3 days. Prescriptions: Ibuprofen [Motrin 600 MG tab] 600 mg PO Q8H PRN #15 tablet PRN Reason: Pain [facility] - 3-5 Days [facility] [Outside] - 3-5 Days [facility] [Outside] - 3-5 Days Forms: Work/School Release Form(ED) Time of Disposition: 09:53
--- NOTE | 2018-09-15 09:39 | XRay Report ---
RIGHT KNEE, 3 views: History: Lateral knee pain. There is been previous placement of an intramedullary paul in the tibia which is partially imaged. Please correlate with history. The bony architecture is intact without evidence of fracture or dislocation. No significant soft tissue abnormality is seen. IMPRESSION: Surgical changes as described. Otherwise, unremarkable right knee films.
== END 2018-09-15 10:14 | disposition home or self-care (01) ==
LOC: EDBD → ED 06:55
DX: S86.911A Strain of unspecified muscle(s) and tendon(s) at lower leg level, right leg, initial encounter (principal); F17.200 Nicotine dependence, unspecified, uncomplicated; X50.1XXA Overexertion from prolonged static or awkward postures, initial encounter; Y93.72 Activity, wrestling; Y99.8 Other external cause status; Y92.019 Unspecified place in single-family (private) house as the place of occurrence of the external cause
CPT/HCPCS: 99283

== ENCOUNTER 2018-10-04 17:51 | Emergency (ER) | payer SELFPAY ==
[2018-10-04] MEDS ORDERED: NACL 0.9% 1000 ML 1,000 ML IV ONE (18:11)
--- NOTE | 2018-10-04 18:14 | Emergency Department Report ---
Stated Complaint: ABD PAIN /VOMITING Time Seen by Provider: 10/04/18 18:10 - HPI History of Present Illness: This is a 34 y.o. male that presents with n/v and abdominal pain x 2 days. - Exam Vital Signs: Vital Signs 10/04/18 18:11 Temperature 98.3 F Pulse Rate 111 H Respiratory 16 Rate Blood Pressure 147/75 O2 Sat by Pulse 97 Oximetry MSE screening note: Focused history and physical exam performed. Due to findings the following was ordered: labs and CT of abdomen ED Disposition for MSE Condition: Stable
[2018-10-04 19:06] LABS: Basophils % (Auto) 0.5 % (0.0-1.8); Eosinophils % (Auto) 0.5 % (0.0-4.3); Hematocrit 47.7 % (35.5-45.6); Hemoglobin 16.4 gm/dl (11.8-15.2); Lymphocytes # (Auto) 1.9 K/mm3 (1.2-5.4); Lymphocytes % (Auto) 20.2 % (13.4-35.0); Mean Corpuscular HGB Conc 34 % (32-34); Mean Corpuscular Hemoglobin 29 pg (28-32); Mean Corpuscular Volume 83 fl (84-94); Monocytes # (Auto) 0.6 K/mm3 (0.0-0.8); Monocytes % (Auto) 6.2 % (0.0-7.3); Platelet Count 275 K/mm3 (140-440); Red Blood Count 5.72 M/mm3 (3.65-5.03); Red Cell Distribution Width 14.1 % (13.2-15.2)
[2018-10-04 19:23] LABS: Alanine Aminotransferase 30 units/L (7-56); Albumin 4.5 g/dL (3.9-5); BUN/Creatinine Ratio 4; Blood Urea Nitrogen 3 mg/dL (9-20); Calcium 9.3 mg/dL (8.4-10.2); Hemolysis Index 36
--- NOTE | 2018-10-04 20:34 | Emergency Department Report ---
ED Abdominal Pain HPI - General Chief Complaint: Abdominal Pain Stated Complaint: ABD PAIN /VOMITING Time Seen by Provider: 10/04/18 18:10 Source: patient Mode of arrival: Ambulatory Limitations: No Limitations - History of Present Illness Initial Comments: 34-year-old -[place] male presents to the emergency room for abdominal pain 2 days. Patient reports it has gotten worse starting at 3 AM today. Patient reports that the pain is located in the lower abdomen is sharp intermittent admits to nausea metastases to vomiting reports he feels hot and cold. He had vomited 3 times today and 2 episodes of diarrhea. He does admit to drinking alcohol denies any cannabis use. Patient reports pain is 8 out of 10. Patient denies any past medical history currently takes no medications on a daily basis and has no known drug allergies. MD Complaint: abdominal pain -: days(s) (2) Location: LLQ, RLQ, suprapubic Radiation: none Severity scale (0 -10): 8 Quality: aching, sharp Consistency: intermittent Improves With: nothing Worsens With: movement Associated Symptoms: nausea, vomiting (3), diarrhea (2 today), fever (subjective) - Related Data Previous Rx's Medication Instructions Recorded Last Taken Type Ibuprofen [Motrin 600 MG tab] 600 mg PO Q8H PRN #15 tablet 10/04/18 Unknown Rx Allergies Allergy/AdvReac Type Severity Reaction Status Date / Time No Known Allergies Allergy Unverified 09/15/18 07:13 ED Review of Systems ROS: Stated complaint: ABD PAIN /VOMITING Other details as noted in HPI Comment: All other systems reviewed and negative Constitutional: chills, fever Gastrointestinal: abdominal pain, nausea, vomiting, diarrhea ED Past Medical Hx - Past Medical History Previous Medical History?: No - Surgical History Past Surgical History?: Yes Additional Surgical History: right arm. roght ankle - Social History Smoking Status: Current Every Day Smoker Substance Use Type: None - Medications Home Medications: Home Medications Medication Instructions Recorded Confirmed Last Taken Type Ibuprofen [Motrin 600 MG tab] 600 mg PO Q8H PRN #15 tablet 10/04/18 Unknown Rx ED Physical Exam - General Limitations: No Limitations General appearance: alert, in no apparent distress - Head Head exam: Present: atraumatic, normocephalic - Eye Eye exam: Present: EOMI - ENT ENT exam: Present: mucous membranes dry - Neck Neck exam: Present: normal inspection - Respiratory Respiratory exam: Present: normal lung sounds bilaterally. Absent: respiratory distress - Cardiovascular Cardiovascular Exam: Present: tachycardia - GI/Abdominal GI/Abdominal exam: Present: soft, guarding, normal bowel sounds. Absent: distended - exam: Present: circumcision. Absent: testicular tenderness, urethral discharge, scrotal swelling External exam: Present: other (bilateral lymphadenopathy) - Extremities Exam Extremities exam: Present: full ROM - Back Exam Back exam: Present: normal inspection, full ROM - Neurological Exam Neurological exam: Present: alert, oriented X3, normal gait - Psychiatric Psychiatric exam: Present: normal affect, normal mood - Skin Skin exam: Present: warm, dry, intact, normal color. Absent: rash ED Course Vital Signs 10/04/18 10/04/18 18:11 21:40 Temperature 98.3 F 98.7 F Pulse Rate 111 H 85 Respiratory 16 18 Rate Blood Pressure 147/75 Blood Pressure 111/60 [Right] O2 Sat by Pulse 97 98 Oximetry ED Medical Decision Making - Lab Data Result diagrams: 10/04/18 18:30 10/04/18 18:30 Critical care attestation.: If time is entered above; I have spent that time in minutes in the direct care of this critically ill patient, excluding procedure time. ED Disposition Clinical Impression: Concern about STD in male without diagnosis UTI (urinary tract infection) Qualifiers: Urinary tract infection type: site unspecified Hematuria presence: without hematuria Qualified Code(s): N39.0 - Urinary tract infection, site not specified Disposition: -01 TO HOME OR SELFCARE Is pt being admited?: No Does the pt Need Aspirin: No Condition: Stable Instructions: Safe Sex (ED), Sexually Transmitted Diseases (ED), Urinary Tract Infection in Men (ED) Additional Instructions: Please take pain medication as prescribed. Please follow up at the health department to have STD screening for syphilis, herpes, hepatitis, HIV. Please refrain from intercourse until your partner has been screened and treated. Bring your picture ID to medical records here at [facility] in 3-5 days to obtain year gonorrhea and chlamydia results. Prescriptions: Ibuprofen [Motrin 600 MG tab] 600 mg PO Q8H PRN #15 tablet PRN Reason: Pain Referrals: RUDDY CASON MD [Primary Care Provider] - 3-5 Days [facility] [Outside] - 3-5 Days [facility] [Outside] - 3-5 Days [facility] [Outside] - 3-5 Days [facility] [Outside] - 3-5 Days [facility] [Outside] - 3-5 Days Forms: Work/School Release Form(ED)
[2018-10-04] MEDS ORDERED: MORPHINE IV ONE (20:55)
[2018-10-04] MEDS ORDERED: ZOFRAN IV ONE (20:55)
[2018-10-04 21:45] LABS: Bilirubin,Urine NEG (Negative); Blood,Urine NEG (Negative); Color,Urine Yellow (Yellow); Mucus,Urine FEW /HPF; Protein,Urine <15 mg/dL mg/dL (Negative); Urobilinogen,Urine < 2.0 mg/dL (<2.0)
[2018-10-04 22:09] VITALS: BP 111/60
--- NOTE | 2018-10-04 22:14 | Cat Scan Report ---
PROCEDURE: CT ABDOMEN PELVIS WO CON TECHNIQUE: Computerized axial tomography of the abdomen and pelvis was performed without intravenous contrast. This study is performed without intravascular contrast material and its sensitivity for ab dominal and pelvic pathology, including neoplasms, inflammation, abscess, free fluid, thrombosis, art erial dissection and infarction, is reduced compared with a contrast enhanced study. CT DOSE LENGTH PRODUCT: 386.7 mGycm HISTORY: difuse abdominal pain COMPARISONS: None . FINDINGS: Liver, spleen, pancreas and bilateral adrenal glands are unremarkable. Bilateral kidneys demonstrate normal density without calculi or hydronephrosis. Urinary bladder is minimally filled. Aorta is of no rmal caliber. There is no free fluid or free air. Gallbladder is unremarkable. Small bowel loops are within normal limits. Appendix is not distinctly visualized. There are no inflammatory changes right lower quadrant. IMPRESSION: No obvious acute intra-abdominal or pelvic pathology as visualized on this noncontrast st udy This document is electronically signed by Magen Jacinto MD., October 04 2018 10:12:07 PM ET
[2018-10-04] MEDS ORDERED: MOTRIN PO ONE (22:28)
[2018-10-04] MEDS ORDERED: XYLOCAINE 1% MPF 5 mL INFILTRATI ONE (22:28)
[2018-10-04] MEDS ORDERED: ZITHROMAX PO ONE (22:28)
[2018-10-04] MEDS ORDERED: ROCEPHIN IM ONE (22:28)
== END 2018-10-04 23:55 | disposition home or self-care (01) ==
LOC: EDBD 17:51 → ED 17:51
DX: N39.0 Urinary tract infection, site not specified (principal); F17.200 Nicotine dependence, unspecified, uncomplicated; Z20.2 Contact with and (suspected) exposure to infections with a predominantly sexual mode of transmission
CPT/HCPCS: 36415; 74176; 80053; 81001; 83690; 85025; 96367; 96372; 96374; 96375; 99284; J0696; J2270; J2405; J7030; 96361